=== PATIENT | female | born 1955 | race Caucasian/White ===

== ENCOUNTER 2022-11-07 19:40 | Emergency (ER) | payer MEDICARE ==
[~2022-11-07] VITALS: Ht 175.3 cm; Wt 80.3 kg
--- NOTE | 2022-11-07 20:00 | NUR ---
[id number]. L SHOULDER, L EYE LID LACERATION, R KNEE S/P SLIP AND FALL. DENIES KO, NOT ON BLOOD THINNER. PATIENT IS AAOX4. ABLE TO MAKE NEEDS KNOWN. CAME WITH ARM SLING ON LEFT UPPER EXTREMITIES. PAIN SCALE 10/10. PLACED COMFORTABLY IN BED. VITALS CHECKED.
--- NOTE | 2022-11-07 20:40 | NUR ---
BROUGHT TO CT DEPT
[2022-11-07] MEDS ORDERED: HYDROCODONE/APAP 5/325MG TABLET ONE (20:54)
[2022-11-07] MEDS ORDERED: LIDOCAINE 1%-EPI 1:100,000 20 ML VIAL ONE (20:54)
[2022-11-07] MEDS ORDERED: TDAP [DIPH/PERTUSSIS/TET] 0.5 ML VIAL IM ONE ×2 (20:55→21:00)
[2022-11-07] MEDS ORDERED: LIDOCAINE 1%-EPI 1:100,000 20 ML VIAL TP ONE (21:00)
[2022-11-07] MEDS ORDERED: HYDROCODONE/APAP 5/325MG TABLET PO ONE (21:00)
--- NOTE | 2022-11-07 21:46 | NUR ---
SUTURING OF WOUND DONE BY DR LIEBERMAN UNDER LOCAL ANESTHESIA
[2022-11-07] MEDS ORDERED: HYDR-4303 PO (21:50)
[2022-11-07] MEDS ORDERED: HYDR-4209 PO (21:58)
--- NOTE | 2022-11-07 22:07 | NUR ---
Patient discharged to home in stable condition. Written and verbal after care instructions given. Patient verbalizes understanding of instruction.
[2022-11-07 22:10] VITALS: BP 141/78
== END 2022-11-07 22:14 | disposition home or self-care (01) ==
LOC: ER 19:46
DX: S42.352A Displaced comminuted fracture of shaft of humerus, left arm, initial encounter for closed fracture (principal); S02.32XA Fracture of orbital floor, left side, initial encounter for closed fracture; S02.40DA Maxillary fracture, left side, initial encounter for closed fracture; S01.112A Laceration without foreign body of left eyelid and periocular area, initial encounter; F32.A Depression, unspecified; E03.9 Hypothyroidism, unspecified; W18.30XA Fall on same level, unspecified, initial encounter; Y93.89 Activity, other specified; Y92.89 Other specified places as the place of occurrence of the external cause; Y99.8 Other external cause status
CPT/HCPCS: 99285; 70450; 29105; 12011; 90471; 90715; 73090; 73060; 73030; 70486; J3490